=== PATIENT | male | born 2000 ===

== ENCOUNTER 2025-07-15 18:10 | Emergency (ER) | payer OTHER ==
[2025-07-15] MEDS ORDERED: Sodium Chloride 0.9% 2.5 ML Syringe FLUSH PRN (18:26)
[2025-07-15] MEDS ORDERED: Sodium Chloride 0.9% 10 ML Syringe FLUSH PRN (18:26)
[2025-07-15 18:33] LABS: BASOPHILS ABSOLUTE AUTO 0.05 K/uL (0.00-0.20); BASOPHILS PERCENT AUTO 0.7 % (0.0-1.0); EOSINOPHILS ABSOLUTE AUTO 0.27 K/uL (0.00-0.45); EOSINOPHILS PERCENT AUTO 3.7 % (0.0-6.0); IMMATURE GRAN ABSOLUTE AUTO 0.01 K/uL (0.00-0.05); IMMATURE GRAN PERCENT AUTO 0.1 % (0.0-0.4); LYMPHOCYTES ABSOLUTE AUTO 3.25 K/uL (1.00-4.80); LYMPHOCYTES PERCENT AUTO 44.4 % (24.0-44.0); MEAN PLATELET VOLUME 10.0 fL (9.4-12.4); MONOCYTES ABSOLUTE AUTO 0.61 K/uL (0.00-0.80); MONOCYTES PERCENT AUTO 8.3 % (0.0-8.0); NEUTROPHILS ABSOLUTE AUTO 3.13 K/uL (1.80-7.70); NEUTROPHILS PERCENT AUTO 42.8 % (41.0-71.0); NRBC ABSOLUTE 0.00 K/uL (0.00-0.02); NRBC PERCENT 0.0 /100WBC (0.0-0.2); PLATELET COUNT,PLT 271 K/uL (150-400); RED BLOOD CELL COUNT 5.20 M/uL (4.52-5.90); WHITE BLOOD CELL COUNT,WBC 7.32 K/uL (3.9-11.3)
[2025-07-15 18:41] LABS: INR 1.05 (0.86-1.11); PTT,PARTIAL THROMBOPLSTIN TIME 28.5 SEC (23.9-30.7)
[2025-07-15 18:50] LABS: A/G RATIO 1.2 (0.9-1.6); ALANINE AMINOTRANSFERASE,ALT 27.0 IU/L (14-63); ASPARTATE AMNIOTRANSFERASE,AST 18.0 IU/L (15-37); BILIRUBIN TOTAL 0.4 mg/dL (0.2-1.0); BLOOD UREA NITROGEN,BUN 19.0 mg/dL (7.0-18.0); CARBON DIOXIDE,CO2 29.8 mmol/L (21.0-32.0); CHLORIDE,CL 100.0 mmol/L (98-107); CREATININE 1.4 mg/dL (0.8-1.3); EST CRCL DRUG DOSING (CG) 92.74 mL/min; GLUCOSE RANDOM 104.0 mg/dL (74-106); POTASSIUM,K 3.4 mmol/L (3.5-5.1); PROTEIN TOTAL,TP 8.2 g/dL (6.4-8.2); SODIUM,NA 139.0 mmol/L (136-148)
[2025-07-15 18:52] LABS: ESTIMATED GFR 72.0 mL/min (>60)
[2025-07-15 20:14] VITALS: BP 114/57; PULSE 84
== END 2025-07-15 20:13 | disposition home or self-care (01) ==
LOC: MW.ED 18:10
DX: S06.0X0A Concussion without loss of consciousness, initial encounter (principal); G44.309 Post-traumatic headache, unspecified, not intractable; Z75.3 Unavailability and inaccessibility of health-care facilities; V26.49XA Other motorcycle driver injured in collision with other nonmotor vehicle in traffic accident, initial encounter
CPT/HCPCS: 36415; 70450; 71101; 72125; 80053; 85025; 85610; 85730; 99284; A9270; 99283